=== PATIENT | female | born 1995 | race Hispanic/Latino ===

== ENCOUNTER 2022-06-27 08:34 | Emergency (ER) | payer OTHER ==
[2022-06-27] MEDS ORDERED: METHYLPREDNISOLONE 125 MG INJ ONE (09:47)
[2022-06-27] MEDS ORDERED: FAMOTIDINE 20 MG/2 ML VIAL IV ONE (09:47)
[2022-06-27 11:26] VITALS: TEMP 97.6
[2022-06-27 11:27] VITALS: BP 118/55; O2SAT 96
--- NOTE | 2022-07-11 16:01 | ER ---
Nurse's Notes [facility] Name: Paula Talley Age: 27 yrs Sex: Female : 1995 Arrival Date: 06/27/2022 Time: 08:36 Bed 12 Private MD: Gris Davila Diagnosis: Angioneurotic edema Presentation: 06/27 08:46 Chief complaint: Patient states: Ate a "poke bowl" that contained raw tuna and fish ph yesterday, afterwards had N/V/D, then woke up this morning w/ swelling to upper lip, numb sensation to tongue and face, some SOB. Coronavirus screen: Vaccine status: Patient reports receiving the 2nd dose of the covid vaccine. Ebola Screen: No symptoms or risks identified at this time. Initial Sepsis Screen: Does the patient meet any 2 criteria? No. Patient's initial sepsis screen is negative. Does the patient have a suspected source of infection? No. Patient's initial sepsis screen is negative. Risk Assessment: Do you want to hurt yourself or someone else? Patient reports no desire to harm self or others. Onset of symptoms was June 27, 2022. 08:46 Method Of Arrival: Ambulatory ph 08:46 Acuity: ABBEY 3 ph HOSPITALITY JOB TITLES: 08:54 LMP 06/27/2022 ph Historical: - Allergies: 08:54 Latex, Natural Rubber; ph 08:54 mushrooms; ph - Home Meds: 08:51 diltiazem Oral [Active]; Zoloft Oral [Active]; Buspirone Oral [Active]; ph - PMHx: 08:51 POTS; ph - Immunization history:: Adult Immunizations up to date. - Social history:: Smoking status: Patient denies any tobacco usage or history of. - Family history:: not pertinent. - Hospitalizations: : No recent hospitalization is reported. Screenin:00 [facility] ED Fall Risk Assessment (Adult) History of falling in the last 3 months, nj1 including since admission No falls in past 3 months (0 pts) Confusion or Disorientation No (0 pts) Intoxicated or Sedated No (0 pts) Impaired Gait No (0 pts) Mobility Assist Device Used No (0 pt) Altered Elimination No (0 pt) Score/Fall Risk Level 0 - 2 = Low Risk Oriented to surroundings, Maintained a safe environment, Educated pt \\T\\ family on fall prevention, incl call for assistance when getting out of bed, Hourly rounding (assess needs \\T\\ fall precautionary measures) done. Abuse screen: Denies threats or abuse. Denies injuries from another. Nutritional screening: No deficits noted. Tuberculosis screening: No symptoms or risk factors identified. Assessment: 09:00 General: Appears in no apparent distress. comfortable, Behavior is calm, cooperative, nj1 appropriate for age. Pain: Denies pain. Neuro: No deficits noted. Level of Consciousness is awake, alert, obeys commands, Oriented to person, place, time, situation. 09:00 Cardiovascular: No deficits noted. Patient's skin is warm and dry. Respiratory: No nj1 deficits noted. Airway is patent Upper lip swelling, no tongue swelling noted. Derm:. 09:00 Derm: Denies Rash. nj1 10:09 Reassessment: Patient appears in no apparent distress at this time. No changes from [facility] previously documented assessment. Patient and/or family updated on plan of care and expected duration. Pain level reassessed. Patient is alert, oriented x 3, equal unlabored respirations, skin warm/dry/pink. Patient states feeling better. Patient states symptoms have improved. Vital Signs: 08:46 BP 137 / 80; Pulse 80; Resp 18; Pulse Ox 99% on R/A; ph 08:53 Weight 56.7 kg; Height 5 ft. 1 in. ; ph 10:13 Pulse 79; Resp 18; Pulse Ox 99% on R/A; nj1 10:24 BP 118 / 74; Pulse 66; Resp 16; Pulse Ox 99% ; nj1 08:53 Body Mass Index 23.62 (56.70 kg, 154.94 cm) ph ED Course: 08:36 Patient arrived in ED. mr 08:36 Gris Davila is Private Physician. mr 08:36 Azael Mtz MD is Attending Physician. rn 08:51 Triage completed. ph 08:53 Arm band placed on Patient placed in an exam room. ph 09:00 Patient has correct armband on for positive identification. Bed in low position. Call nj1 light in reach. 09:00 No provider procedures requiring assistance completed. nj1 09:39 Inserted saline lock: 20 gauge in right antecubital area, using aseptic technique. zm 10:07 Sandy Johnson, RN is Primary Nurse. ph 10:24 IV discontinued, bleeding controlled. nj1 Administered Medications: 09:55 Drug: MethylPrednisoLONE IVP 125 mg Route: IVP; Site: right antecubital; nj1 10:26 Follow up: Response: No adverse reaction nj1 10:01 Drug: Famotidine IVP 20 mg {Note: Diluted with 10ml 0.9% NaCl.} Route: IVP; Infused nj1 Over: 2 mins; Site: right antecubital; 10:25 Follow up: Response: No adverse reaction nj1 Medication: 10:24 VIS not applicable for this client. nj1 Outcome: 09:53 Discharge ordered by . rn 10:25 Discharged to home ambulatory. nj1 10:25 Condition: stable 10:25 Discharge instructions given to patient, Instructed on discharge instructions, follow up and referral plans. medication usage, Demonstrated understanding of instructions, follow-up care, medications, Prescriptions given X 2. 10:26 Patient left the ED. nj1 Signatures: Smiley Cao mr MtzAzael MD MD rn Hall, Patricia, RN RN [facility] Carolyn Morejon RN RN nj1 Corrections: (The following items were deleted from the chart) 08:54 08:51 Allergies: No Known Allergies; ph ph 09:40 09:39 Inserted saline lock: 20 gauge in right antecubital area, using aseptic zm technique. Blood collected. zm 10:05 09:00 Derm: eusebio nj1
--- NOTE | 2022-07-11 16:02 | EDPHYS ---
Physician Documentation [facility] Name: Paula Talley Age: 27 yrs Sex: Female : 1995 Arrival Date: 06/27/2022 Time: 08:36 Bed 12 Private MD: Gris Davila ED Physician Azael Mtz HPI: 06/27 08:59 This 27 yrs old Female presents to ER via Ambulatory with complaints of Lips rn Swelling. 08:59 The patient presents with swelling. The problem is located in the upper lip. Onset: The rn symptoms/episode began/occurred this morning. Duration: The symptoms are continuous. Modifying factors: The symptoms are alleviated by nothing, the symptoms are aggravated by nothing. Associated signs and symptoms: Pertinent positives: swelling, Pertinent negatives: chills, dysphagia, fever, inability to eat, pain, vomiting. Severity of symptoms: At their worst the symptoms were moderate, in the emergency department the symptoms are unchanged. The patient has experienced a previous episode. Pt reports this is 2nd time this has happened, no new exposure or medication, isolated upper lip swelling with tongue feeling numb. No difficulty swallowing. No sob. No rash or itching.. 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 - Social history:: Smoking status: Patient denies any tobacco usage or history of. - Family history:: not pertinent. - Hospitalizations: : No recent hospitalization is reported. ROS: 09:36 Constitutional: Negative for fever, chills, and weight loss, Eyes: Negative for injury, rn pain, redness, and discharge, ENT: + lip swelling Cardiovascular: Negative for chest pain, palpitations, and edema, Respiratory: Negative for shortness of breath, cough, wheezing, and pleuritic chest pain, Abdomen/GI: Negative for abdominal pain, nausea, vomiting, diarrhea, and constipation, MS/Extremity: Negative for injury and deformity, Skin: Negative for injury, rash, and discoloration, Neuro: Negative for headache, weakness, numbness, tingling, and seizure. Exam: 09:36 Constitutional: This is a well developed, well nourished patient who is awake, alert, rn and in no acute distress. Head/Face: Normocephalic, atraumatic. Eyes: Pupils equal round and reactive to light, extra-ocular motions intact. ENT: + edematous upper lip, no intraoral swelling, no stridor, no evidence of abscess or fluctuance. Cardiovascular: Regular rate and rhythm. No pulse deficits. Respiratory: No increased work of breathing, no retractions or nasal flaring. Abdomen/GI: Soft, non-tender Skin: Warm, dry MS/ Extremity: Pulses equal, no cyanosis. Neuro: Awake and alert, GCS 15 Vital Signs: 08:46 BP 137 / 80; Pulse 80; Resp 18; Pulse Ox 99% on R/A; ph 08:53 Weight 56.7 kg; Height 5 ft. 1 in. ; ph 10:13 Pulse 79; Resp 18; Pulse Ox 99% on R/A; nj1 10:24 BP 118 / 74; Pulse 66; Resp 16; Pulse Ox 99% ; nj1 08:53 Body Mass Index 23.62 (56.70 kg, 154.94 cm) ph MDM: 08:37 Patient medically screened. rn 09:51 Differential diagnosis: allergic reaction, angioedema. Data reviewed: vital signs, rn nurses notes, and as a result, I will discharge patient. 09:52 Counseling: I had a detailed discussion with the patient and/or guardian regarding: the rn historical points, exam findings, and any diagnostic results supporting the discharge/admit diagnosis, the need for outpatient follow up, to return to the emergency department if symptoms worsen or persist or if there are any questions or concerns that arise at home. Response to treatment: the patient's symptoms have mildly improved after treatment, and as a result, I will discharge patient. Special discussion: I discussed with the patient/guardian in detail that at this point there is no indication for admission to the hospital. It is understood, however, that if the symptoms persist or worsen the patient needs to return immediately for re-evaluation. Based on the history and exam findings, there is no indication for further emergent testing or inpatient evaluation. I discussed with the patient/guardian the need to see the hay buckler for further evaluation of the symptoms. 06/27 08:55 Order name: IV Start; Complete Time: 09:39 rn Administered Medications: 09:55 Drug: MethylPrednisoLONE IVP 125 mg Route: IVP; Site: right antecubital; nj1 10:26 Follow up: Response: No adverse reaction nj1 10:01 Drug: Famotidine IVP 20 mg {Note: Diluted with 10ml 0.9% NaCl.} Route: IVP; Infused nj1 Over: 2 mins; Site: right antecubital; 10:25 Follow up: Response: No adverse reaction nj1 Disposition Summary: 06/27/22 09:53 Discharge Ordered Location: Home rn Problem: new rn Symptoms: have improved rn Condition: Stable rn Diagnosis - Angioneurotic edema rn Followup: rn - With: Private Physician - When: As needed - Reason: Recheck today's complaints, Re-evaluation by your physician Discharge Instructions: - Discharge Summary Sheet rn - Angioedema rn Forms: - Medication Reconciliation Form rn - Thank You Letter rn - Antibiotic pattern developer - Prescription Opioid Use rn Prescriptions: - EpiPen 0.3 mg/0.3 mL Injection Auto-Injector - administer 0.3 milligram by INTRAMUSCULAR route once As needed as a single rn dose; 1 Pack; Refills: 0, Product Selection Permitted - Prednisone 20 mg Oral Tablet - take 3 tablets by ORAL route once daily for 5 days; 15 tablet; Refills: 0, rn Product Selection Permitted Signatures: Azael Mtz MD MD rn Hall, Patricia, RN RN ph Jaco, Norma, RN RN nj1 Corrections: (The following items were deleted from the chart) 08:54 08:51 Allergies: No Known Allergies; ph
== END 2022-06-27 10:26 | disposition home or self-care (01) ==
LOC: ER 08:34
DX: T78.3XXA Angioneurotic edema, initial encounter (principal); Z91.018 Allergy to other foods; Z91.040 Latex allergy status; Z91.048 Other nonmedicinal substance allergy status
CPT/HCPCS: 96375; 96374; 99283; J2930